=== PATIENT | male | born 1945 ===

== ENCOUNTER 2021-12-15 07:29 | Day surgery (SDC) | payer OTHER ==
[~2021-12-15] VITALS: Ht 172.7 cm; Wt 77.1 kg
[~2021-12-15 07:29] MED LIST: LOSARTAN-HCTZ1 EAC1 PO
[2021-12-15] MEDS ORDERED: ULTRACET PO (08:36)
[2021-12-15] MEDS ORDERED: COLACE100 MG PO (08:36)
== END 2021-12-15 17:45 | disposition home or self-care (01) ==
LOC: CIR.AMB 07:29
PROVIDERS: ATTEND Surgery
DX: C20 Malignant neoplasm of rectum (principal); Z20.822 Contact with and (suspected) exposure to COVID-19; Z88.6 Allergy status to analgesic agent; I10 Essential (primary) hypertension

== ENCOUNTER 2021-12-17 00:25 | Emergency (ER) | payer OTHER ==
[~2021-12-17] VITALS: Ht 172.7 cm; Wt 77.1 kg
[~2021-12-17 00:25] MED LIST changes: +COLACE100 MG PO; +ULTRACET PO
[2021-12-17] MEDS ORDERED: ATORVASTATIN CA20 MG (00:31)
== END 2021-12-17 00:56 | disposition home or self-care (01) ==
LOC: ER 00:25
DX: N99.89 Other postprocedural complications and disorders of genitourinary system (principal); R33.8 Other retention of urine; Z88.6 Allergy status to analgesic agent; Z88.0 Allergy status to penicillin